=== PATIENT | male | born 1955 | race Caucasian/White ===

== ENCOUNTER 2019-04-09 09:21 | Emergency (ER) | payer MEDICAID, SELFPAY ==
[2019-04-09] VITALS (23 sets, daily range): BP systolic 119–154; BP diastolic 67–80; PULSE 43–72; RESP 3–25; TEMP 37; O2SAT 93–99
--- NOTE | 2019-04-09 10:00 | NUR.NOTE ---
Nursing Note: pt resting in stretcher, no signs of distress. Pt bradycardic on monitor. NON SYMPTOMATIC. states that he was aware that he rubs bradycardic at baseline when he last had a stress test.
--- NOTE | 2019-04-09 10:10 | W.ED.GENAD ---
Discharge Plan Disposition Patient Disposition: HOME Condition: Good Discharge Details Chief Complaint: Allergic Clinical Impression: Bee sting, Bradycardia Primary Care Provider: Rosalina Wray ED Provider: Nikos Medina Home Meds and New Rx's Prescriptions: Continued epinephrine [EpiPen 2-Cristofer] 0.3 MG/0.3 ML auto-injector 0.3 mg IJ PRN Qty: 1 RF: 0 epinephrine 0.3 MG/SYR auto-injector 0.3 mg IM PRN PRN (Reason: anaphylaxis) Qty: 1 RF: 1 Discharge Instructions Instructions: Insect Bite or Sting (ED), Anaphylaxis (ED) Additional Instructions: Return to the emergency department for any new or significant worsening of symptoms. Given your marked bradycardia without any other symptoms and your reported history of this you are safely able to be discharged unless you start having symptoms you should return immediately. These symptoms may include lightheadedness, dizziness, syncope, or chest pain. Otherwise it is very important you follow-up with your primary care provider in the next week for recheck of your heart rate Referrals: Rosalina Wray [Primary Care Provider] - 1 week (For recheck of your heart rate) Discharge Data Discharge Date/Time-TO BE ENTERED AT DEPARTURE: 04/09/19 11:59 Medical Decision Making Patient presenting to the emergency department for chief complaint of bee sting. Patient states that he got stung approximately 1 hour prior to arrival by an unknown insect which he saw bees flying around. 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 He came into the emergency department for evaluation after giving himself the EpiPen. Patient denies any facial swelling, chest pain, difficulty breathing, itching or hives. He states he is otherwise asymptomatic beyond mild discomfort from the sting. Physical exam is completely unremarkable with fully patent airway except for small erythematous area on left hand that is consistent with stinger bite. Patient denies attempting to remove any stinger. Given very reassuring exam patient is not in anaphylaxis or any respiratory distress and since he self-administered epinephrine I do not feel that further epinephrine is needed the patient was given Zantac and prednisone and continued to be observed. Patient continued to be asymptomatic upon reassessment. Of notation was patient's marked bradycardia. Patient states history of bradycardia that has been evaluated by Dr. Marina at [place] [facility]. Did attempt to get records from [facility] that noted his bradycardia but was unable to. EKG was performed and was reviewed with attending physician Dr. Desir and shows sinus bradycardia, rate of 40, inverted T waves in V1 through V3 and lead III otherwise unremarkable EKG. Patient denies any symptoms, chest pain, lightheadedness and states he otherwise feels completely normal. Given this patient was encouraged to follow-up with his primary care provider for reassessment of his bradycardia. Patient is not on any beta-blockers or cardiac meds that would cause this so I do not feel that any other interventions are needed but thorough discussion of return precautions were discussed with patient. Patient was prescribed epinephrine as he states that he only has one pen left. After discussion of diagnosis and plan of care patient has no further needs, questions, or concerns and states clear understanding to return to the emergency department for any worsening symptoms. HPI General Mode of arrival: ambulatory. Date/Time Provider Initiated Documentation: 04/09/19 09:44. Limitations to Documentation: no limitations. Information obtained by: patient and RN notes reviewed. History of Present Illness 63 year old M presents to the emergency department with the chief complaint of Bee sting, described as mild, with intensity rated at 1. Quality is described as sharp, and is localized to the left and upper extremity. Patient started experiencing this hour(s) (1) and it has been constant. No relieving factors improve symptom(s), No exacerbating factors reported . Patient notes no other symptoms.. Patient did receive the following treatments prior to arrival, other (EpiPen) Related Data Home Medications Medication Instructions Recorded Confirmed epinephrine [EpiPen 2-Cristofer] 0.3 mg IJ PRN #1 ml 04/21/14 epinephrine 0.3 mg IM PRN PRN #1 each 04/09/19 Previous Rx's Medication Instructions Recorded epinephrine [EpiPen 2-Cristofer] 0.3 mg IJ PRN #1 ml 04/21/14 epinephrine 0.3 mg IM PRN PRN #1 each 04/09/19 Allergies Allergy/AdvReac Type Severity Reaction Status Date / Time venom-honey bee Allergy Severe anaphylaxis Unverified 04/21/14 17:52 [bee venom (honey bee)] General Stated Complaint: Allergic BETZY: 3 Review of Systems Constitutional Denies lethargy and Denies malaise ENT Denies lip swelling, Denies throat swelling and Denies tongue swelling Cardiovascular Denies chest pain and Denies dyspnea Respiratory Denies dyspnea Integumentary/Breasts Reports as per HPI Allergic/Immunologic Denies lip swelling, Denies throat swelling and Denies tongue swelling [facility] Social History Smoking/Tobacco Use Status: Current every day Tobacco Type: smokeless tobacco Alcohol Intake: current Alcohol Intake frequency: a few times a month Drug use: Never Substance use type: does not use Do you feel safe at home: Yes Exam Const General: cooperative, no acute distress and not ill appearing Orientation: alert, awake and oriented x3 HENMT Head: normal to inspection and normocephalic General nose exam: external nose normal and nares normal Face and sinus: normal facial exam Mouth: oral mucosae normal, lip normal, tongue normal and moist mucous membranes Throat: posterior oropharynx normal, tonsils normal and uvula midline Resp Effort & Inspection: normal respiratory effort, able to speak in complete sentences and no respiratory distress Auscultation: clear to auscultation bilaterally Cardio Rate: regular rate Rhythm: regular rhythm Heart Sounds: S1 normal and S2 normal Skin General skin exam: erythema (To the webspace between the thumb and index finger of the left hand) Neuro General: alert, awake, oriented x3, moves all extremities and no focal motor deficits Sensory Exam: no sensory deficits noted Course Vital Signs Temperature 37 C 04/09/19 09:26 Pulse 50 L 04/09/19 09:26 Respiratory Rate 16 04/09/19 09:26 Blood Pressure 145/68 H 04/09/19 09:26 Pulse Oximetry 98 04/09/19 09:26 Temperature 37 C 04/09/19 09:26 Temperature Source Skin 04/09/19 09:26 Pulse 50 L 04/09/19 09:26 Respiratory Rate 16 04/09/19 09:26 Respiratory Effort Non-Labored 04/09/19 09:29 Respiratory Pattern Normal 04/09/19 09:29 Blood Pressure 145/68 H 04/09/19 09:26 Blood Pressure Position Supine 04/09/19 09:26 Pulse Oximetry 98 04/09/19 09:26 Oxygen Delivery Method Room Air 04/09/19 09:26 Oxygen Flow Rate 0 04/09/19 09:26
[2019-04-09] MEDS: predniSONE 20 MG TAB 40 MG PO (10:28)
--- NOTE | 2019-04-09 11:54 | NUR.NOTE ---
Nursing Note: pt alert/oriented/ambulatory. pt denies symptoms of allergic reaction. discharged to home. instructions reviewed, emphasis on what symptoms would warrant returning to ER, understanding verbalized. VSS
== END 2019-04-09 11:59 | disposition home or self-care (01) ==
PROVIDERS: Emergency Provider Nurse Practitioner Family; PCP Family Medicine
DX: T63.441A Toxic effect of venom of bees, accidental (unintentional), initial encounter (principal); R00.1 Bradycardia, unspecified
CPT/HCPCS: 99283; J7512